=== PATIENT | male | born 1965 | race Caucasian/White ===

== ENCOUNTER 2025-07-23 23:52 | Emergency (ER) | payer BC ==
[2025-07-23] MEDS ORDERED: Sodium Chloride 0.9% 2.5 ML Syringe FLUSH PRN (23:58)
[2025-07-23] MEDS ORDERED: Sodium Chloride 0.9% 10 ML Syringe FLUSH PRN (23:58)
[2025-07-24 00:06] LABS: BASOPHILS ABSOLUTE AUTO 0.07 K/uL (0.00-0.20); BASOPHILS PERCENT AUTO 0.3 % (0.0-1.0); EOSINOPHILS ABSOLUTE AUTO 0.03 K/uL (0.00-0.45); EOSINOPHILS PERCENT AUTO 0.1 % (0.0-6.0); IMMATURE GRAN ABSOLUTE AUTO 0.08 K/uL (0.00-0.05); IMMATURE GRAN PERCENT AUTO 0.4 % (0.0-0.4); LYMPHOCYTES ABSOLUTE AUTO 1.25 K/uL (1.00-4.80); LYMPHOCYTES PERCENT AUTO 6.0 % (24.0-44.0); MEAN PLATELET VOLUME 9.7 fL (9.4-12.4); MONOCYTES ABSOLUTE AUTO 1.39 K/uL (0.00-0.80); MONOCYTES PERCENT AUTO 6.6 % (0.0-8.0); NEUTROPHILS ABSOLUTE AUTO 18.15 K/uL (1.80-7.70); NEUTROPHILS PERCENT AUTO 86.6 % (41.0-71.0); NRBC ABSOLUTE 0.00 K/uL (0.00-0.02); NRBC PERCENT 0.0 /100WBC (0.0-0.2); PLATELET COUNT,PLT 203 K/uL (150-400); RED BLOOD CELL COUNT 5.32 M/uL (4.52-5.90); WHITE BLOOD CELL COUNT,WBC 20.97 K/uL (3.9-11.3)
[2025-07-24] MEDS: Iopamidol 755 MG/ML 500 ML Multipack Bottle IVPUSH ONE (00:29)
[2025-07-24 00:34] LABS: A/G RATIO 0.8 (0.9-1.6); ALANINE AMINOTRANSFERASE,ALT 38.0 IU/L (14-63); ASPARTATE AMNIOTRANSFERASE,AST 18.0 IU/L (15-37); BILIRUBIN TOTAL 1.6 mg/dL (0.2-1.0); BLOOD UREA NITROGEN,BUN 13.0 mg/dL (7.0-18.0); CARBON DIOXIDE,CO2 26.8 mmol/L (21.0-32.0); CHLORIDE,CL 99.0 mmol/L (98-107); CREATININE 1.1 mg/dL (0.8-1.3); EST CRCL DRUG DOSING (CG) 71.89 mL/min; GLUCOSE RANDOM 130.0 mg/dL (74-106); POTASSIUM,K 4.2 mmol/L (3.5-5.1); PROTEIN TOTAL,TP 7.6 g/dL (6.4-8.2); SODIUM,NA 135.0 mmol/L (136-148)
[2025-07-24 00:44] LABS: ESTIMATED GFR 76.0 mL/min (>60)
[2025-07-24 01:20] LABS: APPEARANCE,URINE CLEAR; GLUCOSE,URINE NEGATIVE (NEGATIVE); OCCULT BLOOD,URINE SMALL (NEGATIVE)
[2025-07-24 01:26] LABS: EPITHELIAL CELLS,URINE RARE (NONE-FEW)
[2025-07-24] MEDS: Ondansetron 4 MG/2 ML SDV IVPUSH ONE (08:49)
[2025-07-24] MEDS: Ketorolac 30 MG/ML SDV IVPUSH ONE (08:49)
== END 2025-07-24 09:30 ==
LOC: MW.ED 23:52
DX: K57.20 Diverticulitis of large intestine with perforation and abscess without bleeding (principal); Z79.899 Other long term (current) drug therapy
CPT/HCPCS: 36415; 74177; 80053; 81001; 83690; 85025; 87324; 87428; 87507; 93005; 96361; 96365; 96375; 99285; J1885; J2405; J2543; J7030; Q9967; 93010; J1171